=== PATIENT | male | born 1935 | race Caucasian/White ===

== ENCOUNTER 2018-07-23 13:28 | Outpatient (CLI) | payer MEDICARE | END 2018-07-23 23:59 | disposition home or self-care (01) | LOC: CFH 13:28 | PROVIDERS: ATTEND Internal Medicine Cardiovascular Disease | DX: I08.0 Rheumatic disorders of both mitral and aortic valves (principal); I10 Essential (primary) hypertension | CPT/HCPCS: 93306 ==

== ENCOUNTER 2018-09-22 10:34 | Day surgery (SDC) | payer MEDICARE ==
[~2018-09-22] VITALS: Ht 175.3 cm; Wt 100.0 kg
[2018-09-22] MEDS ORDERED: SODIUM CHLORIDE 0.9% 1,000 ML IV SCH ×2 (10:47→13:56)
[2018-09-22 10:58] VITALS: BP 138/97
[2018-09-22] MEDS ORDERED: SIMV40TA3 PO (11:10)
[2018-09-22] MEDS ORDERED: [UNRECOGNIZED DRUG - REMARK] PO (11:10)
[2018-09-22] MEDS ORDERED: OMEP40CA6 PO (11:10)
[2018-09-22] MEDS ORDERED: LOSA1TAB25 PO (11:10)
[2018-09-22] MEDS ORDERED: POTA10TA6 PO (11:10)
[2018-09-22] MEDS ORDERED: FURO-92 PO (11:10)
[2018-09-22 11:19] LABS: BASOPHILS # (AUTO) 0.03 x10^3/uL (0-0.1); BASOPHILS % (AUTO) 0 % (0-1); EOSINOPHILS % (AUTO) 1 % (1-7); LYMPHOCYTES # (AUTO) 2.25 x10^3/uL (1-3.4); LYMPHOCYTES % (AUTO) 30 % (22-44); MD NO; MEAN CORPUSCULAR HEMOGLOBIN 36.9 pg (27.5-34.5); MEAN CORPUSCULAR HGB CONC 33.6 g/dL (33.2-36.2); MEAN CORPUSCULAR VOLUME 109.8 fL (81-97); MEAN PLATELET VOLUME 7.1 fL (7.4-10.4); MONOCYTES # (AUTO) 0.67 x10^3/uL (0.2-0.8); MONOCYTES % (AUTO) 9 % (2-9); NEUTROPHILS # (AUTO) 4.56 x10^3/uL (1.8-6.8); NEUTROPHILS % (AUTO) 60 % (42-75); PLATELET COUNT 224 x10^3/uL (130-400); RED BLOOD COUNT 4.27 x10^6/uL (4.38-5.82)
[2018-09-22] MEDS ORDERED: DIPHENHYDRAMINE 50 MG/ML, 1ML ONE (11:28)
[2018-09-22] MEDS ORDERED: DIPHENHYDRAMINE 50 MG/ML, 1ML IVPush ONE (11:30)
[2018-09-22 11:36] LABS: ANION GAP 10 mmol/L (5-15); CHLORIDE 104 mmol/L (98-107); CREATININE 1.32 mg/dL (0.7-1.3)
[2018-09-22] MEDS ORDERED: FENTANYL PF 100 MCG/2ML ONE (12:50)
[2018-09-22] MEDS ORDERED: LIDOCAINE-MPF 1%, 5ML ONE (12:50)
[2018-09-22] MEDS ORDERED: HEPARIN 1,000 UNITS/ML, 10ML ONE (12:50)
[2018-09-22] MEDS ORDERED: VERAPAMIL 2.5 MG/ML, 2ML ONE (12:50)
[2018-09-22] MEDS ORDERED: MIDAZOLAM 1 MG/ML, 5ML ONE (12:50)
== END 2018-09-22 15:48 | disposition home or self-care (01) ==
LOC: CACL 10:34
PROVIDERS: ATTEND Internal Medicine Cardiovascular Disease
DX: I35.0 Nonrheumatic aortic (valve) stenosis (principal); I10 Essential (primary) hypertension; Z88.8 Allergy status to other drugs, medicaments and biological substances; Z72.89 Other problems related to lifestyle
CPT/HCPCS: 36415; 80048; 85025; 93454; 99156; 99157; C1769; C1894; J1200; J1644; J2250; J3010; J7030; Q9967

== ENCOUNTER 2018-10-01 11:15 | Outpatient (CLI) | payer MEDICARE | END 2018-10-01 23:59 | disposition home or self-care (01) | LOC: CVU 11:15 → RAD 23:59 | PROVIDERS: ATTEND Internal Medicine Cardiovascular Disease | DX: I65.23 Occlusion and stenosis of bilateral carotid arteries (principal); I25.10 Atherosclerotic heart disease of native coronary artery without angina pectoris; I71.4 Abdominal aortic aneurysm, without rupture; I72.3 Aneurysm of iliac artery; I35.0 Nonrheumatic aortic (valve) stenosis; M51.36 Other intervertebral disc degeneration, lumbar region; I10 Essential (primary) hypertension | CPT/HCPCS: 71275; 74174; 93880; 94060; 94726; 94729; Q9967 ==

== ENCOUNTER 2018-10-08 08:08 | Inpatient (IN) | payer MEDICARE ==
[~2018-10-08] VITALS: Ht 177.8 cm; Wt 102.6 kg
[~2018-10-08 08:08] MED LIST: FURO-92 PO; LOSA1TAB25 PO; OMEP40CA6 PO; POTA10TA6 PO; SIMV40TA3 PO; [UNRECOGNIZED DRUG - REMARK] PO
[2018-10-08] MEDS ORDERED: SODIUM CHLORIDE 0.9% 1,000 ML IV ONE (08:49)
[2018-10-08 08:53] VITALS: BP 134/95
[2018-10-08] MEDS ORDERED: ONDANSETRON 2MG/ML, 2ML IVPush PRN ×2 (09:00→12:30)
[2018-10-08] MEDS ORDERED: CHLORHEXIDINE 15 ML UDC MM PRN (09:00)
[2018-10-08 09:36] LABS: BASOPHILS # (AUTO) 0.03 x10^3/uL (0-0.1); BASOPHILS % (AUTO) 1 % (0-1); EOSINOPHILS # (AUTO) 0.09 x10^3/uL (0-0.4); EOSINOPHILS % (AUTO) 2 % (1-7); LYMPHOCYTES # (AUTO) 1.97 x10^3/uL (1-3.4); LYMPHOCYTES % (AUTO) 35 % (22-44); MD NO; MEAN CORPUSCULAR HEMOGLOBIN 36.2 pg (27.5-34.5); MEAN CORPUSCULAR HGB CONC 33.5 g/dL (33.2-36.2); MEAN CORPUSCULAR VOLUME 108.1 fL (81-97); MEAN PLATELET VOLUME 7.4 fL (7.4-10.4); MONOCYTES # (AUTO) 0.55 x10^3/uL (0.2-0.8); MONOCYTES % (AUTO) 10 % (2-9); NEUTROPHILS # (AUTO) 3.05 x10^3/uL (1.8-6.8); NEUTROPHILS % (AUTO) 54 % (42-75); PLATELET COUNT 248 x10^3/uL (130-400); RED BLOOD COUNT 4.14 x10^6/uL (4.38-5.82)
[2018-10-08 09:44] LABS: INTERNATIONAL NORMALIZED RATIO 1.1 (0.93-1.1); PROTHROMBIN TIME 11.5 Seconds (9.6-11.5)
[2018-10-08 10:02] LABS: ALBUMIN 3.4 g/dL (3.4-5.0); ANION GAP 10 mmol/L (5-15); CALCIUM 8.7 mg/dL (8.5-10.1); CHLORIDE 105 mmol/L (98-107); CREATININE 1.61 mg/dL (0.7-1.3)
[2018-10-08 10:22] LABS: ALANINE AMINOTRANSFERASE 22 U/L (12-78); ALKALINE PHOSPHATASE 66 U/L (45-117); TOTAL PROTEIN 7.3 g/dL (6.4-8.2)
[2018-10-08] MEDS ORDERED: FENTANYL PF 250 MCG/5ML ONE (10:43)
[2018-10-08] MEDS ORDERED: HEPARIN 1,000 UNITS/ML, 30ML ONE (10:46)
[2018-10-08] MEDS ORDERED: PROPOFOL 10 MG/ML, 20ML ONE (10:46)
[2018-10-08] MEDS ORDERED: DEXAMETHASONE 4 MG/ML, 1ML ONE (10:47)
[2018-10-08] MEDS ORDERED: ONDANSETRON 2MG/ML, 2ML ONE (10:47)
[2018-10-08] MEDS ORDERED: ROCURONIUM 10MG/ML,5ML ONE (10:47)
[2018-10-08] MEDS ORDERED: VASOPRESSIN 20 UNIT/ML, 1ML ONE (11:42)
[2018-10-08] MEDS: ASPIRIN 81 MG TABLET EC PO SCH (12:30)
[2018-10-08] MEDS ORDERED: ACETAMINOPHEN 325 MG TABLET PO PRN (12:30)
[2018-10-08] MEDS ORDERED: hydrALAzine 20 MG/ML, 1ML IVPush PRN (12:30)
[2018-10-08] MEDS ORDERED: CLOPIDOGREL 300 MG TABLET PO ONE (12:30)
[2018-10-08] MEDS ORDERED: HYDROcodone/APAP 5/325 TABLET PO PRN (12:30)
[2018-10-08] MEDS ORDERED: LABETALOL 20 MG/4 ML IVPush PRN (12:30)
[2018-10-08 17:39] VITALS: BP 114/69
[2018-10-08 19:30] VITALS: BP 124/66
[2018-10-08] MEDS: POTASSIUM CHLORIDE 10 MEQ TABLET.ER PO SCH (21:00)
[2018-10-08] MEDS ORDERED: SIMVASTATIN 40 MG TABLET PO SCH (21:00)
[2018-10-09 01:05] VITALS: BP 131/70
[2018-10-09 05:35] LABS: MEAN CORPUSCULAR HEMOGLOBIN 36.3 pg (27.5-34.5); MEAN CORPUSCULAR VOLUME 110.2 fL (81-97); MEAN PLATELET VOLUME 7.3 fL (7.4-10.4); PLATELET COUNT 195 x10^3/uL (130-400); RED BLOOD COUNT 4.04 x10^6/uL (4.38-5.82); RED CELL DISTRIBUTION WIDTH 12.9 % (9.4-14.8)
[2018-10-09 05:44] LABS: ANION GAP 10 mmol/L (5-15); CALCIUM 8.5 mg/dL (8.5-10.1); CHLORIDE 103 mmol/L (98-107); CREATININE 1.46 mg/dL (0.7-1.3)
[2018-10-09 06:30] LABS: BASOPHILS # (AUTO) 0.01 x10^3/uL (0-0.1); BASOPHILS % (AUTO) 0 % (0-1); EOSINOPHILS % (AUTO) 0 % (1-7); LYMPHOCYTES # (AUTO) 0.68 x10^3/uL (1-3.4); LYMPHOCYTES % (AUTO) 7 % (22-44); MD SCAN; MONOCYTES # (AUTO) 0.36 x10^3/uL (0.2-0.8); MONOCYTES % (AUTO) 4 % (2-9); NEUTROPHILS # (AUTO) 9.23 x10^3/uL (1.8-6.8); NEUTROPHILS % (AUTO) 90 % (42-75)
[2018-10-09 06:55] VITALS: BP 154/87
[2018-10-09] MEDS ORDERED: OMEPRAZOLE 20 MG CAPSULE.DR PO SCH (07:00)
[2018-10-09] MEDS ORDERED: FUROSEMIDE 40 MG TABLET PO SCH (09:00)
[2018-10-09] MEDS ORDERED: CLOPIDOGREL 75 MG TABLET PO SCH (09:00)
[2018-10-09] MEDS ORDERED: HYDROCHLOROTHIAZIDE 12.5 MG CAPSULE PO SCH (09:00)
[2018-10-09] MEDS ORDERED: LOSARTAN 50MG TABLET PO SCH (09:00)
[2018-10-09] MEDS: ASPIRIN 81 MG TABLET EC PO SCH (09:44)
[2018-10-09] MEDS: POTASSIUM CHLORIDE 10 MEQ TABLET.ER PO SCH (09:44)
[2018-10-09] MEDS ORDERED: ASPI81TA45 PO (11:43)
[2018-10-09] MEDS ORDERED: CLOP75TA PO (11:43)
== END 2018-10-09 12:54 | disposition home or self-care (01) | DRG 266 ==
LOC: ORIP 08:08 → CCU 12:18 → 5SO 17:24 → DCLOUNGE 10-09 12:36
PROVIDERS: ADMIT Internal Medicine Cardiovascular Disease; ATTEND Internal Medicine Cardiovascular Disease
PROC: B246ZZ4 Ultrasonography of Right and Left Heart, Transesophageal (ICD-10-PCS; 2018-10-08)
PROC: 03HY32Z Insertion of Monitoring Device into Upper Artery, Percutaneous Approach (ICD-10-PCS; 2018-10-08)
PROC: 02RF38Z Replacement of Aortic Valve with Zooplastic Tissue, Percutaneous Approach (ICD-10-PCS; principal; 2018-10-08 11:30)
DX: I35.0 Nonrheumatic aortic (valve) stenosis (principal); Z00.6 Encounter for examination for normal comparison and control in clinical research program; I50.33 Acute on chronic diastolic (congestive) heart failure; I13.0 Hypertensive heart and chronic kidney disease with heart failure and stage 1 through stage 4 chronic kidney disease, or unspecified chronic kidney disease; E78.5 Hyperlipidemia, unspecified; N18.9 Chronic kidney disease, unspecified; G89.29 Other chronic pain; I05.1 Rheumatic mitral insufficiency; I44.7 Left bundle-branch block, unspecified; D72.829 Elevated white blood cell count, unspecified; M54.30 Sciatica, unspecified side; K21.9 Gastro-esophageal reflux disease without esophagitis; G62.9 Polyneuropathy, unspecified; Z82.3 Family history of stroke; Z90.89 Acquired absence of other organs
CPT/HCPCS: 0399T; 33361; 36415; 80048; 80053; 83880; 85025; 85347; 85610; 85730; 86850; 86900; 86923; 87081; 93005; 93306; 93312; 93321; 93325; 93355; C1760; C1769; C1894; G0378; J1100; J1644; J2405; J2704; J3010; J7030; Q9967

== ENCOUNTER 2019-09-16 13:02 | Outpatient (CLI) | payer MEDICARE ==
[~2019-09-16 13:02] MED LIST changes: +ASPI81TA45 PO; +CLOP75TA PO; +OMEP40CA42 PO; -OMEP40CA6 PO; +SIMV40TA20 PO; -SIMV40TA3 PO
== END 2019-09-16 23:59 | disposition home or self-care (01) ==
LOC: RAD 13:02
PROVIDERS: ATTEND Orthopaedic Surgery Orthopaedic Surgery of the Spine
DX: Z02.9 Encounter for administrative examinations, unspecified (principal)

== ENCOUNTER → 2019-10-15 | Outpatient (CLI) | payer MEDICARE | END | disposition home or self-care (01) | LOC: CFH 09:48 | PROVIDERS: ATTEND Internal Medicine Cardiovascular Disease | DX: I08.0 Rheumatic disorders of both mitral and aortic valves (principal); R06.02 Shortness of breath; I65.29 Occlusion and stenosis of unspecified carotid artery | CPT/HCPCS: 93306 ==

== ENCOUNTER 2019-11-04 10:18 | Day surgery (SDC) | payer MEDICARE ==
[~2019-11-04] VITALS: Ht 177.8 cm; Wt 95.5 kg
[~2019-11-04 10:18] MED LIST changes: +LIDOCAINE 2%, 20ML ONE
== END 2019-11-04 12:46 | disposition home or self-care (01) ==
LOC: CACL 10:18
PROVIDERS: ATTEND Internal Medicine Cardiovascular Disease
DX: I63.9 Cerebral infarction, unspecified (principal); I10 Essential (primary) hypertension; E78.2 Mixed hyperlipidemia; E66.3 Overweight; Z68.30 Body mass index [BMI] 30.0-30.9, adult; Z79.899 Other long term (current) drug therapy; Z95.2 Presence of prosthetic heart valve
CPT/HCPCS: 33285; C1764

== ENCOUNTER 2020-11-02 10:35 | Observation (INO) | payer MEDICARE ==
[~2020-11-02] VITALS: Ht 177.8 cm; Wt 105.4 kg
[~2020-11-02 10:35] MED LIST changes: -LIDOCAINE 2%, 20ML ONE; -OMEP40CA42 PO; +OMEP40CA8 PO
[2020-11-02] MEDS ORDERED: CEFAZOLIN PMX 1GM/50ML 50 ML IVPB ONE (11:00)
[2020-11-02] MEDS: SODIUM CHLORIDE 0.9% 1,000 ML IV SCH ×2 (11:00→16:19)
[2020-11-02 11:22] VITALS: BP 162/88
[2020-11-02 11:33] LABS: BASOPHILS % (AUTO) 1 % (0-1); EOSINOPHILS % (AUTO) 2 % (1-7); LYMPHOCYTES % (AUTO) 33 % (22-44); MEAN CORPUSCULAR HEMOGLOBIN 36.7 pg (27.5-34.5); MEAN CORPUSCULAR HGB CONC 34.7 g/dL (33.2-36.2); MEAN PLATELET VOLUME 7.6 fL (7.4-10.4); MONOCYTES % (AUTO) 8 % (2-9); NEUTROPHILS % (AUTO) 56 % (42-75); PLATELET COUNT 161 x10^3/uL (130-400); RED BLOOD COUNT 3.95 x10^6/uL (4.38-5.82); RED CELL DISTRIBUTION WIDTH 13.7 % (9.4-14.8)
[2020-11-02] MEDS ORDERED: LOSA100T14 PO (11:33)
[2020-11-02] MEDS ORDERED: DOXA2TAB PO (11:33)
[2020-11-02] MEDS ORDERED: ATOR40TA78 PO (11:33)
[2020-11-02] MEDS ORDERED: DIPH-628 PO (11:33)
[2020-11-02] MEDS ORDERED: AMLO-150 PO (11:33)
[2020-11-02] MEDS ORDERED: METO25TA91 PO (11:33)
[2020-11-02 11:38] LABS: INTERNATIONAL NORMALIZED RATIO 1.08 (0.93-1.1); PROTHROMBIN TIME 11.5 Seconds (9.6-11.5)
[2020-11-02 11:56] LABS: CHLORIDE 106 mmol/L (98-107)
[2020-11-02] MEDS ORDERED: CEFAZOLIN PMX 1GM/50ML 50 ML ONE (11:57)
[2020-11-02] MEDS ORDERED: FENTANYL PF 100 MCG/2ML ONE (11:57)
[2020-11-02] MEDS ORDERED: CEFAZOLIN 1,000 MG ONE (11:57)
[2020-11-02] MEDS ORDERED: MIDAZOLAM 1 MG/ML, 2ML ONE ×2 (11:57→12:19)
[2020-11-02] MEDS ORDERED: LIDOCAINE 1%, 20ML ONE (11:57)
[2020-11-02 12:07] LABS: ALANINE AMINOTRANSFERASE 25 U/L (12-78); ALBUMIN 3.3 g/dL (3.4-5.0); ALKALINE PHOSPHATASE 68 U/L (45-117); ANION GAP 6 mmol/L (5-15); BILIRUBIN,TOTAL 0.9 mg/dL (0.2-1.0); CALCIUM 8.8 mg/dL (8.5-10.1); CREATININE 1.07 mg/dL (0.7-1.3); TOTAL PROTEIN 7.5 g/dL (6.4-8.2)
[2020-11-02 12:18] LABS: <PLATELET ESTIMATE> ADEQUATE; <PLT MORPHOLOGY> NORMAL PLT MORPH
[2020-11-02] MEDS ORDERED: HOLD MEDICATION MC PRN ×2 (13:00→22:08)
[2020-11-02 13:22] VITALS: BP 143/69
[2020-11-02] MEDS ORDERED: METO-264 PO (13:26)
[2020-11-02] MEDS: HYDROcodone/APAP 5/325 TABLET PO PRN ×2 (17:30→18:35)
[2020-11-02 19:20] VITALS: BP 142/85
[2020-11-02 20:07] VITALS: BP 139/83
[2020-11-02] MEDS: DOXAZOSIN 2MG TABLET PO SCH (20:10)
[2020-11-02] MEDS: CEFAZOLIN PMX 1GM/50ML 50 ML IVPB SCH (20:10)
[2020-11-02] MEDS: SODIUM CHLORIDE FLUSH 10ML SYR IVF SCH (20:11)
[2020-11-02] MEDS ORDERED: TRAZODONE 50MG TABLET PO ONE (20:30)
[2020-11-02] MEDS ORDERED: ATORVASTATIN 40 MG TABLET PO SCH (21:00)
[2020-11-03 01:28] VITALS: BP 129/77
[2020-11-03] MEDS: SODIUM CHLORIDE 0.9% 1,000 ML IV SCH (04:01)
[2020-11-03] MEDS: CEFAZOLIN PMX 1GM/50ML 50 ML IVPB SCH (04:02)
[2020-11-03 07:00] VITALS: BP 155/91
[2020-11-03] MEDS: SODIUM CHLORIDE FLUSH 10ML SYR IVF SCH (07:52)
[2020-11-03] MEDS: HYDROcodone/APAP 5/325 TABLET PO PRN (07:56)
[2020-11-03] MEDS ORDERED: ACET325T26 PO (08:07)
[2020-11-03] MEDS ORDERED: METOPROLOL SUCCINATE 25 MG TAB.ER.24H PO SCH (09:00)
[2020-11-03] MEDS ORDERED: DIPHENHYDRAMINE 25 MG CAPSULE PO SCH (09:00)
[2020-11-03] MEDS: DOXAZOSIN 2MG TABLET PO SCH (09:00)
[2020-11-03] MEDS ORDERED: OMEPRAZOLE 20 MG CAPSULE.DR PO SCH (09:00)
[2020-11-03] MEDS ORDERED: FUROSEMIDE 40 MG TABLET PO SCH (09:00)
[2020-11-03] MEDS ORDERED: AMLODIPINE 5 MG TABLET PO SCH (09:00)
[2020-11-03] MEDS ORDERED: LOSARTAN 100 MG TAB PO SCH (09:00)
== END 2020-11-03 09:44 | disposition home or self-care (01) ==
LOC: CACL 10:35 → 5SO 13:23 → CACL 22:56 → 5SO 22:56
PROVIDERS: ADMIT Internal Medicine Cardiovascular Disease; ATTEND Internal Medicine Cardiovascular Disease
DX: I44.0 Atrioventricular block, first degree (principal); I49.5 Sick sinus syndrome; I71.4 Abdominal aortic aneurysm, without rupture; I10 Essential (primary) hypertension; E78.2 Mixed hyperlipidemia; G47.33 Obstructive sleep apnea (adult) (pediatric); Z95.2 Presence of prosthetic heart valve; Z79.899 Other long term (current) drug therapy
CPT/HCPCS: 33208; 33286; 36415; 71045; 80053; 85025; 85610; 93005; 96365; 96366; 99156; 99157; C1779; C1785; C1892; G0378; J0690; J2250; J3010; J3490; Q0163